=== PATIENT | female | born 1990 | race Caucasian/White ===

== ENCOUNTER 2018-10-04 12:32 | Emergency (ER) | payer OTHER ==
[~2018-10-04] VITALS: Ht 152.4 cm; Wt 73.0 kg
[2018-10-04 15:53] VITALS: BP 125/85
== END 2018-10-04 15:54 | disposition home or self-care (01) ==
LOC: ER 12:33
DX: J06.9 Acute upper respiratory infection, unspecified (principal); H92.02 Otalgia, left ear
CPT/HCPCS: 99281

== ENCOUNTER 2018-11-21 12:53 | Outpatient (CLI) | payer OTHER | END 2018-11-21 23:59 | disposition home or self-care (01) | LOC: RAD 12:53 | PROVIDERS: ATTEND Nurse Practitioner Family | DX: R07.81 Pleurodynia (principal) | CPT/HCPCS: 71100 ==

== ENCOUNTER 2019-02-16 09:05 | Outpatient (CLI) | payer OTHER ==
[2019-02-16 09:46] LABS: ALANINE AMINOTRANSFERASE 37 U/L (12-78); ASPARTATE AMINO TRANSFERASE 23 U/L (10-37)
== END 2019-02-16 23:59 | disposition home or self-care (01) ==
LOC: LAB 09:05
PROVIDERS: ATTEND Nurse Practitioner
DX: L70.0 Acne vulgaris (principal)
CPT/HCPCS: 36415; 84450; 84460

== ENCOUNTER 2019-09-07 07:44 | Emergency (ER) | payer OTHER ==
[~2019-09-07] VITALS: Ht 154.9 cm; Wt 70.0 kg
[2019-09-07 07:47] VITALS: BP 138/83
[2019-09-07] MEDS ORDERED: ibuprofen tablet 400 MG TABLET PO ONE (08:10)
[2019-09-07] MEDS ORDERED: benzonatate 100mg capsule PO ONE (08:10)
[2019-09-07] MEDS ORDERED: acetaminophen 325mg tablet PO ONE (08:10)
[2019-09-07] MEDS ORDERED: BENZ-16 PO (08:15)
[2019-09-07] MEDS ORDERED: GUAI120L55 PO (08:19)
[2019-09-07] MEDS ORDERED: ibuprofen 200mg tablet PO ONE (08:20)
== END 2019-09-07 08:37 | disposition home or self-care (01) ==
LOC: ER 07:45
DX: J06.9 Acute upper respiratory infection, unspecified (principal); Z79.899 Other long term (current) drug therapy
CPT/HCPCS: 71045; 93005; 99283

== ENCOUNTER 2020-07-17 18:37 | Emergency (ER) | payer OTHER ==
[~2020-07-17] VITALS: Ht 152.4 cm; Wt 72.7 kg
[~2020-07-17 18:37] MED LIST: GUAI120L55 PO
[2020-07-17] MEDS ORDERED: CYCL-1 PO (19:11)
[2020-07-17 19:26] VITALS: BP 136/87
== END 2020-07-17 19:19 | disposition home or self-care (01) ==
LOC: ER 18:38
DX: S13.4XXA Sprain of ligaments of cervical spine, initial encounter (principal); M25.512 Pain in left shoulder; Z79.899 Other long term (current) drug therapy; V87.7XXA Person injured in collision between other specified motor vehicles (traffic), initial encounter; Y93.89 Activity, other specified; Y92.488 Other paved roadways as the place of occurrence of the external cause; Y99.8 Other external cause status
CPT/HCPCS: 99283

== ENCOUNTER 2020-11-04 23:24 | Outpatient (CLI) | payer BC ==
[~2020-11-04 23:24] MED LIST changes: +CYCL-1 PO
[2020-11-06 12:38] LABS: HBSAG SCREEN Negative (Negative); HEP A AB, IGM Negative (Negative); HEPATITIS C ANTIBODY <0.1 s/co ratio (0.0-0.9)
== END 2020-11-04 23:59 | disposition home or self-care (01) ==
LOC: LAB 23:24
PROVIDERS: ATTEND Family Medicine
DX: Z11.4 Encounter for screening for human immunodeficiency virus [HIV] (principal); Z11.3 Encounter for screening for infections with a predominantly sexual mode of transmission; Z11.8 Encounter for screening for other infectious and parasitic diseases; Z13.29 Encounter for screening for other suspected endocrine disorder
CPT/HCPCS: 36415; 80074; 84439; 84443; 86592; 86695; 86696; 87389

== ENCOUNTER 2021-05-07 03:30 | Emergency (ER) | payer BC ==
[~2021-05-07] VITALS: Ht 152.4 cm; Wt 75.0 kg
[2021-05-07 03:35] VITALS: BP 136/91
[2021-05-07 04:15] LABS: URINE HCG NEGATIVE (NEG)
[2021-05-07 04:30] LABS: CLARITY,URINE SLIGHTLY CLOUDY (Clear); COLOR,URINE YELLOW (Yellow); GLUCOSE, URINE NEGATIVE (Neg); KETONES,URINE NEGATIVE (Neg); LEUKOCYTE ESTERASE ,URINE SMALL (Neg); NITRITES, URINE NEGATIVE (Neg); OCCULT BLOOD,URINE NEGATIVE (Neg); PROTEIN,URINE NEGATIVE (Neg); UROBILINOGEN,URINE 0.2 E.U/dL (0.2-1.0)
[2021-05-07 04:44] LABS: UA COLLECTION TYPE CLN CATCH MIDSTREAM
[2021-05-07 04:45] LABS: BACTERIA,URINE 3+ /HPF (Neg); MUCUS STRANDS MODERATE /LPF (Neg); RBC,URINE 0-2 /HPF (0-2); SQUAMOUS EPITHELIAL CELL,UR FEW /LPF (FEW)
== END 2021-05-07 05:45 | disposition home or self-care (01) ==
LOC: ER 03:31 → EEVIPCON 03:31 → ER 05:45
DX: N76.0 Acute vaginitis (principal); Z79.899 Other long term (current) drug therapy
CPT/HCPCS: 36415; 81001; 81025; 87088; 87491; 99283

== ENCOUNTER 2021-05-31 19:18 | Emergency (ER) | payer BC ==
[~2021-05-31] VITALS: Ht 177.8 cm; Wt 75.0 kg
[2021-05-31] MEDS ORDERED: AZIT-63 PO (20:44)
[2021-05-31 21:03] VITALS: BP 118/75
== END 2021-05-31 21:16 | disposition home or self-care (01) ==
LOC: ER 19:19 → EEVIPCON 19:19 → ER 21:16
DX: U07.1 COVID-19 (principal); J32.9 Chronic sinusitis, unspecified; Z79.2 Long term (current) use of antibiotics; Z79.899 Other long term (current) drug therapy; Z72.89 Other problems related to lifestyle
CPT/HCPCS: 87635; 99283; C9803

== ENCOUNTER 2022-05-31 16:00 | Emergency (ER) | payer BC ==
[~2022-05-31] VITALS: Ht 152.4 cm; Wt 79.5 kg
[2022-05-31 16:11] VITALS: BP 144/80
[2022-05-31] MEDS ORDERED: acetaminophen 325mg tablet PO ONE (16:40)
== END 2022-05-31 18:06 | disposition home or self-care (01) ==
LOC: VAS 16:01
DX: M25.512 Pain in left shoulder (principal); Z72.89 Other problems related to lifestyle; Z79.899 Other long term (current) drug therapy
CPT/HCPCS: 73030; 99283

== ENCOUNTER 2022-11-26 22:38 | Emergency (ER) | payer BC | END 2022-11-26 22:56 | disposition left against medical advice (07) | LOC: ER 22:39 | DX: Z01.89 Encounter for other specified special examinations (principal) | CPT/HCPCS: 99281 ==

== ENCOUNTER 2022-11-26 23:12 | Outpatient (CLI) | payer BC | END 2022-11-26 23:59 | disposition home or self-care (01) | LOC: LAB 23:12 | DX: E03.8 Other specified hypothyroidism (principal); Z13.29 Encounter for screening for other suspected endocrine disorder | CPT/HCPCS: 36415; 84439; 84443; 84481 ==

== ENCOUNTER 2023-01-06 02:28 | Emergency (ER) | payer BC ==
[~2023-01-06] VITALS: Ht 152.4 cm; Wt 75.0 kg
[2023-01-06 04:57] VITALS: BP 130/78
== END 2023-01-06 04:58 | disposition home or self-care (01) ==
LOC: ER 02:29
DX: J02.9 Acute pharyngitis, unspecified (principal); M54.2 Cervicalgia; Z20.822 Contact with and (suspected) exposure to COVID-19; Z72.89 Other problems related to lifestyle; Z79.899 Other long term (current) drug therapy
CPT/HCPCS: 87081; 87502; 87503; 87635; 87880; 99283; C9803

== ENCOUNTER 2023-08-02 23:21 | Outpatient (CLI) | payer BC | END 2023-08-02 23:59 | disposition home or self-care (01) | LOC: RAD 23:21 | PROVIDERS: ATTEND Emergency Medicine | DX: M79.641 Pain in right hand (principal) | CPT/HCPCS: 73130 ==

== ENCOUNTER 2023-08-13 12:47 | Outpatient (CLI) | payer BC ==
[2023-08-13 15:38] LABS: BASOPHILS % (AUTO) 0.5 % (0-1); EOSINOPHILS # (AUTO) 0.2 X10'3 (0-0.9); EOSINOPHILS % (AUTO) 2.6 % (0-6); HEMATOCRIT 40.2 % (35.0-45.0); HEMOGLOBIN 13.6 g/dl (12.0-16.0); LYMPHOCYTES # (AUTO) 2.2 X10'3 (1.1-4.8); LYMPHOCYTES % (AUTO) 31.1 % (21-51); MEAN CORPUSCULAR HEMOGLOBIN 30.3 PG (27.0-31.0); MEAN CORPUSCULAR HGB CONC 33.9 g/dL (33.0-36.5); MEAN CORPUSCULAR VOLUME 89.4 FL (78-98); MEAN PLATELET VOLUME 9.3 FL (7.4-10.4); MONOCYTES # (AUTO) 0.4 X10'3 (0-0.9); MONOCYTES % (AUTO) 5.8 % (2-12); NEUTROPHILS # (AUTO) 4.1 X10'3 (1.8-7.7); PLATELET COUNT 276 X10'3 (140-440); RED BLOOD COUNT 4.49 X10'6 (4.20-5.60); RED CELL DISTRIBUTION WIDTH 13.2 % (11.5-14.5); WHITE BLOOD COUNT 6.9 X10'3 (4.5-11.0)
[2023-08-13 15:55] LABS: ALANINE AMINOTRANSFERASE 16 U/L (12-78); ALBUMIN 3.3 G/DL (3.4-5.0); ALBUMIN/GLOBULIN RATIO 1.1 (1.1-1.5); ALKALINE PHOSPHATASE 73 IU/L (46-116); ANION GAP 9 (8-16); ASPARTATE AMINO TRANSFERASE 17 U/L (10-37); BILIRUBIN,TOTAL 0.3 MG/DL (0.1-1.0); BLOOD UREA NITROGEN 9 MG/DL (7-18); BUN/CREATININE RATIO 10.2 (10.0-20.0); CALCIUM 8.9 MG/DL (8.5-10.1); CHLORIDE 104 MMOL/L (99-107); CREATININE 0.88 MG/DL (0.40-0.90); GLUCOSE 99 MG/DL (70-104); POTASSIUM 3.9 MMOL/L (3.5-5.1); SODIUM 139 MMOL/L (135-145); THYROID STIMULATING HORMONE 1.52 ulU/ml (0.34-4.50); TOTAL CARBON DIOXIDE 25.7 MMOL/L (24-32); TOTAL PROTEIN 6.4 G/DL (6.4-8.2); eGFR 74 ML/MIN
[2023-08-13 16:20] LABS: HEMOGLOBIN A1C 5.5 % (4.5-6.2)
[2023-08-13 17:05] LABS: FREE T4 (FREE THYROXINE) 1.05 NG/DL (0.73-1.40)
[2023-08-16 16:31] LABS: VITAMIN D, 25-HYDROXY 30.3 ng/mL (30.0-100.0)
[2023-08-16 23:07] LABS: INSULIN 28.9 uIU/mL (2.6-24.9)
[2023-08-17 06:04] LABS: ESTRADIOL 13.4 pg/mL (.); FOLATE SERUM(FOLIC) 13.7 ng/mL (>3.0); TESTOSTERONE, SERUM 13 ng/dL (8-60); THYROID PEROXIDASE AB <9 IU/mL (0-34); TRIIODOTHYRONINE (T3) 197 ng/dL (71-180)
== END 2023-08-13 23:59 | disposition home or self-care (01) ==
LOC: LAB 12:47
PROVIDERS: ATTEND Physician Assistant
DX: R79.89 Other specified abnormal findings of blood chemistry (principal); R53.83 Other fatigue; E66.01 Morbid (severe) obesity due to excess calories
CPT/HCPCS: 36415; 80053; 82306; 82607; 82670; 82746; 83036; 83525; 84402; 84403; 84439; 84443; 84480; 85025; 86376

== ENCOUNTER 2024-03-17 16:00 | Emergency (ER) | payer BC ==
[~2024-03-17] VITALS: Ht 152.4 cm; Wt 82.1 kg
[2024-03-17] MEDS ORDERED: ERYT1OIN6 LEFTEYE (16:49)
[2024-03-17 18:13] VITALS: BP 124/87; PULSE 102; RESP 18; TEMP 98.1; O2SAT 97
== END 2024-03-17 17:05 | disposition home or self-care (01) ==
LOC: ER 16:01
DX: H10.9 Unspecified conjunctivitis (principal); Z79.899 Other long term (current) drug therapy; Z79.2 Long term (current) use of antibiotics
CPT/HCPCS: 99283; A6258

== ENCOUNTER 2025-04-14 19:29 | Emergency (ER) | payer BC ==
[~2025-04-14] VITALS: Ht 152.4 cm; Wt 59.8 kg
[2025-04-14 19:40] VITALS: BP 120/83; PULSE 102; TEMP 97.9; O2SAT 97
[2025-04-14 19:47] VITALS: RESP 16
--- NOTE | 2025-04-14 19:47 | Physician Documentation ---
History of Present Illness ~ Chief Complaint: Cough Stated Complaint: COUGH Time Seen by MD: 20:39 OK to notify your PCP?: Yes Primary Medical Doctor: NONE Source: patient Mode of Arrival: POV Exam Limitations: no limitations HPI 34-year-old female presents with cough for the past couple of days. She reports having thick sputum, but she is coughing but then swallows it so she is not sure what color it is. She is having some tightness down in her chest while she was coughing and is concerned for possible pneumonia. She denies any fever, nasal congestion or body aches. Medication Reconciliation Allergies: Coded Allergies: No Known Allergies (Unverified , 03/17/24) Scheduled Cyclobenzaprine* (Cyclobenzaprine*), 1 TAB PO HS Guaifenesin/Codeine Phosphate (Codeine-Guaifen 10-100 mg/5 ml), 10 ML PO HS Past Medical History Past Medical History: No Pertinent History Past Surgical History: no surgical history Alcohol Use: Occasionally Drug Use: none Lives In: Home Occupation: employed Review of Systems All Other Systems at this time: Reviewed and Negative Physical Exam Vital Signs: RN Vital Signs have been reviewed: Yes, Temperature: 97.9, Source: Temporal, Heart Rate: 102, Respiratory Rate: 16, BP: 120/83, Pulse Oximetry: 97, Weight: 59.800 Pulse Oximetry Reflects: adequate oxygenation Physical Exam General: Alert, no apparent distress. HEENT: no injection, moist mucous membranes. Erythema to posterior pharynx. Neck: Full range of motion. Respiratory: Lungs clear, no respiratory distress. Chest: No accessory muscle use. Cardiovascular: Regular rate and rhythm, no murmurs. Gastrointestinal: Soft, nontender, nondistended. Bowels sounds present. Extremities: Normal range of motion, no deformity. Neurologic: Oriented x4. Psychiatric: Normal mood and affect. Skin: Normal color, warm and dry. No edema, no ecchymosis. Progress Results/Orders Reviewed/noted all lab results: Yes Results/Orders Orders - LYNN ROMERO WHIP SAWYER Chest,Single View (04/14/25 19:43) Completed Orders - LYNN ROMERO WHIP SAWYER Chest,Single View (04/14/25 19:43) Benzonatate Capsule (Tessalon Perles Cap (04/14/25 20:45) Medications Received in ER Medications (Trade) Dose Ordered Sig/Gabe Route PRN Reason Start Time Stop Time Status Last Admin Dose Admin (Tessalon Perles capsule) 200 mg ONCE ONCE PO 04/14/25 20:45 04/14/25 20:46 DC 04/14/25 20:53 200 MG Vital Signs 04/14/25 04/14/25 04/14/25 19:40 19:47 20:29 Temp 97.9 Pulse 102 Resp 16 16 B/P (MAP) 120/83 Pulse Ox 97 EKG/XRAY/CT/US/VASC/MRI Chest X-Ray : Additional Comments Chest x-ray: as interpreted by me; no large effusion, no large infiltrate, normal mediastinum. Medical Decision Making Findings 34-year-old female presents with cough for the past couple of days. She does have some tightness in her chest while she coughs and has been having some productive sputum. She does not have any other viral symptoms at this time. Her x-ray shows reactive airway changes versus viral infection. There is no indication for any antibiotic at this time. I discussed this with the patient and she agrees with the plan we gave Tessalon Perles while here in the department to help with her cough. She reports that Tessalon Perles usually do not work for her but she was willing to give it a try. Use away discussed that using [id number] honey can be very helpful to relieve a cough. She should follow up with her primary care provider and return back here for any new or worsening symptoms. Differential Dx:Considerations: Include: Influenza, Peritonsillar abscess, Pharyngitis-Streptoccal, Pneumonia, Pnuemonitis Departure Disposition: HOME / SELF CARE / HOMELESS Impression: Primary Impression: Cough Condition: Stable Discharge Instructions: Cough, Adult Additional Instructions: Please try honey for your cough as this can be very helpful. Return back here for any new or worsening symptoms. Referrals: NO PRIMARY CARE PROVIDER (PCP) Education Educated: Patient Educated regarding: diagnosis, treatment, prognosis, need for follow up Additional Comment Medical Screen Exam This patient recieved a medical screening examination. After reviewing the individual's medical complaints with presenting symptoms and performing an appropriate physical examination, it was determined that no immediate life- threatening emergency medical condition is present. This individual is also not a women having contractions. Signature Scribe Signature: . Attestation: Scribed for Lynn Romero Laminator by Lynn Laura NP . 04/14/25 21:21 Parts of this note were created using [employer] voice recognition software program. While efforts were made to correct any mistakes made by this voice recognition software program, nonsensical phrases may remain in this note. In addition, there may be errors and syntax, grammar, content and spelling. LYNN ROMERO [facility] Apr 14, 2025 19:46
--- NOTE | 2025-04-14 21:05 | RADIOLOGY REPORT ---
EXAMINATION: AP portable chest radiograph CLINICAL HISTORY: cough with tightness in chest COMPARISON: None available FINDINGS: Mild central interstitial prominence. No dominant consolidations. No sizable pleural effusions or pn eumothorax. The cardiomediastinal silhouette appears within normal limits given technique. IMPRESSION: Mild central interstitial prominence is relatively nonspecific but can be seen with edema, reactive a irway changes as well as atypical / viral infection. Please correlate clinically.
== END 2025-04-14 21:25 | disposition home or self-care (01) ==
LOC: ER 19:30
DX: R05.9 Cough, unspecified (principal)
CPT/HCPCS: 71045; 99283

== ENCOUNTER 2025-07-24 11:05 | Outpatient (CLI) | payer BC ==
[2025-07-24 11:51] LABS: MEAN PLATELET VOLUME 8.7 FL (7.4-10.4); RED CELL DISTRIBUTION WIDTH 13.9 % (11.5-14.5)
[2025-07-24 12:53] LABS: CHOL/HDL RATIO 2.7 (0.00-4.99); CREATININE 0.79 MG/DL (0.40-0.90); LDL CHOLESTEROL 103 MG/DL (50-100); TOTAL CARBON DIOXIDE 25.0 MMOL/L (24-32); eGFR 82 ML/MIN
[2025-07-24 13:04] LABS: CRP-CARDIAC RISK 19.680 MG/L
[2025-07-25 11:19] LABS: INSULIN 18.5 uIU/mL (2.6-24.9); THIIODOTHRONINE, FREE, SERUM 3.6 pg/mL (2.0-4.4); THYROXINE (T4) 9.7 ug/dL (4.5-12.0); VITAMIN D, 25-HYDROXY 43.3 ng/mL (30.0-100.0)
== END 2025-07-24 23:59 | disposition home or self-care (01) ==
LOC: LAB 11:05
PROVIDERS: ATTEND Emergency Medicine
DX: E66.9 Obesity, unspecified (principal); E78.5 Hyperlipidemia, unspecified; E55.9 Vitamin D deficiency, unspecified; R79.9 Abnormal finding of blood chemistry, unspecified; E53.8 Deficiency of other specified B group vitamins
CPT/HCPCS: 36415; 80053; 80061; 82306; 82607; 83036; 83525; 84436; 84443; 84481; 85025; 86140